=== PATIENT | male | born 1990 | race Caucasian/White ===

== ENCOUNTER → 2022-04-01 | Outpatient (CLI) | payer OTHER | LOC: MHCPAIN 08:11 | DX: M47.812 Spondylosis without myelopathy or radiculopathy, cervical region (principal); M54.2 Cervicalgia; G89.29 Other chronic pain | CPT/HCPCS: G0463 ==

== ENCOUNTER → 2022-04-10 | Outpatient (CLI) | payer OTHER | LOC: MHCPAIN 12:00 | DX: M47.812 Spondylosis without myelopathy or radiculopathy, cervical region (principal); M54.12 Radiculopathy, cervical region | CPT/HCPCS: J1100; Q9967 ==

== ENCOUNTER → 2022-04-29 | Outpatient (CLI) | payer OTHER | LOC: MHCPAIN 07:51 | DX: M47.812 Spondylosis without myelopathy or radiculopathy, cervical region (principal); M54.2 Cervicalgia; G89.29 Other chronic pain | CPT/HCPCS: G0463 ==

== ENCOUNTER → 2022-05-15 | Outpatient (CLI) | payer OTHER | LOC: MHCPAIN 10:47 | DX: M47.812 Spondylosis without myelopathy or radiculopathy, cervical region (principal); M54.12 Radiculopathy, cervical region | CPT/HCPCS: J1100; Q9967 ==

== ENCOUNTER → 2022-06-04 | Outpatient (CLI) | payer OTHER | LOC: MHCPAIN 09:18 | DX: M54.12 Radiculopathy, cervical region (principal); G89.29 Other chronic pain | CPT/HCPCS: G0463 ==

== ENCOUNTER 2022-07-19 08:42 | Emergency (ER) | payer OTHER ==
[~2022-07-19] VITALS: Ht 185.4 cm; Wt 84.1 kg
[2022-07-19 08:50] VITALS: TEMP 98.2
[2022-07-19] MEDS ORDERED: ZANAFLEX CAPSULE4 MG PO (08:55)
[2022-07-19] MEDS ORDERED: TOPROL XL 25MG25 MG PO (08:56)
[2022-07-19 09:39] LABS: BASO # 0.1 K/mm3 (0.0-0.2); BASO % 1.1 % (0.0-2.0); EOS # 0.3 K/mm3 (0.0-0.7); EOS % 6.3 % (0.0-4.0); GRAN # 2.2 K/mm3 (1.4-6.5); GRAN % 45.9 % (42.2-75.2); HEMATOCRIT 42.7 % (42.0-52.0); HEMOGLOBIN 14.6 g/dl (13.5-18.0); LYMPH # 1.7 K/mm3 (1.2-3.4); LYMPH % 36.6 % (20.0-51.0); MEAN CELL VOLUME 85 fl (80.0-100.0); MEAN CORPUSCULAR HEMOGLOBIN 29 pg (27-31); MEAN CORPUSCULAR HGB CONC 34 g/dl (33.0-37.0); MEAN PLATELET VOLUME 10.3 fl (7.4-10.4); MONO # 0.5 K/mm3 (0.1-0.6); MONO % 10.1 % (1.7-9.3); PLATELET COUNT 218 K/mm3 (130-400); RED BLOOD COUNT 5.01 M/mm3 (4.20-5.60); REDCELL DISTRIBUTION WIDTH-CV 12.8 % (11.5-14.5)
[2022-07-19 09:49] LABS: CALCIUM 9.2 mg/dL (8.4-10.2); CREATININE, serum 0.9 mg/dL (0.72-1.25); POTASSIUM 3.9 mmol/L (3.5-4.5)
[2022-07-19 10:09] VITALS: BP 129/87; PULSE 56
== END 2022-07-19 10:25 | disposition home or self-care (01) ==
LOC: COL.ER 08:42
PROVIDERS: Emergency Medicine
DX: M79.651 Pain in right thigh (principal); Z98.890 Other specified postprocedural states; Z28.310 Unvaccinated for COVID-19
CPT/HCPCS: J2270